=== PATIENT | male | born 1955 | race Caucasian/White ===

== ENCOUNTER 2020-08-30 09:56 | Day surgery (SDC) | payer OTHER ==
[2020-08-30] VITALS (7 sets, daily range): BP systolic 122–145; BP diastolic 67–79
[~2020-08-30] VITALS: Ht 177.8 cm; Wt 108.0 kg
== END 2020-08-30 17:10 | disposition home or self-care (01) ==
LOC: DS 09:56 → OR 12:00 → DS 12:00
PROVIDERS: ATTEND Internal Medicine Cardiovascular Disease
DX: R07.9 Chest pain, unspecified (principal); I25.10 Atherosclerotic heart disease of native coronary artery without angina pectoris; I10 Essential (primary) hypertension; I45.10 Unspecified right bundle-branch block; R73.03 Prediabetes; J45.909 Unspecified asthma, uncomplicated; Z79.899 Other long term (current) drug therapy; Z88.0 Allergy status to penicillin; Z88.2 Allergy status to sulfonamides; Z88.8 Allergy status to other drugs, medicaments and biological substances; Z79.84 Long term (current) use of oral hypoglycemic drugs; Z79.82 Long term (current) use of aspirin
CPT/HCPCS: CLHCL; 76937; 93571; C1894; J2001; J2250; J3010; J7040; Q9967